=== PATIENT | female | born 1985 | race Two or more races ===

== ENCOUNTER 2017-04-13 17:33 | Emergency (ER) | payer MEDICAID, OTHER ==
[~2017-04-13] VITALS: Ht 157.5 cm; Wt 68.0 kg
[2017-04-14] MEDS ORDERED: ALBUTEROL (0.083%) 2.5MG/3ML NEB HHN ONE (00:30)
[2017-04-14 00:31] VITALS: BP 118/82
== END 2017-04-14 02:09 | disposition home or self-care (01) ==
LOC: ER 18:05
DX: R05 Cough (principal); Z88.0 Allergy status to penicillin
CPT/HCPCS: 71010; 81025; 94640; 99283; J7611